=== PATIENT | female | born 1985 | race Caucasian/White ===

== ENCOUNTER 2016-12-13 18:13 | Emergency (ER) | payer OTHER ==
[2016-12-13 18:22] VITALS: TEMP 36.8
[2016-12-13 18:39] VITALS: O2SAT 100
[2016-12-13] MEDS ORDERED: BCPILLS PO (18:47)
[2016-12-13] MEDS ORDERED: BIOF500C2 PO (18:47)
[2016-12-13] MEDS ORDERED: FERR1TAB13 PO (18:47)
[2016-12-13] MEDS ORDERED: CHOL1000 PO (18:47)
[2016-12-13] MEDS ORDERED: SODIUM CHLORIDE 0.9% 1000ML 1,000 ML IV STA (19:18)
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
[2016-12-13] MEDS ORDERED: OPTIRAY 320 IV PRN (19:30)
[2016-12-13 19:39] LABS: BASO % 0.1 %; BASO ABS # 0.01 K/uL (0-0.2); COMPLETE YES; EOS % 0.8 %; IG% 0.3 %; LYMPH % 20.7 %; LYMPH ABS # 1.61 K/uL (1.2-3.4); MEAN CELL VOLUME 94.3 fL (80-100); MEAN CORPUSCULAR HEMOGLOBIN 32.8 pg (25-34); MEAN CORPUSCULAR HGB CONC 34.7 g/dl (32-36); MEAN PLATELET VOLUME 9.2 fL (7.4-10.4); MONO % 6.8 %; NEUT % 71.3 %; PLATELET COUNT 319 K/uL (130-400); RED BLOOD COUNT 4.03 M/uL (4.2-5.4); WHITE BLOOD COUNT 7.76 K/uL (4.8-10.8)
[2016-12-13 19:59] LABS: ALT/SGPT 30 U/L (12-78); AST/SGOT 31 U/L (15-37); BLOOD UREA NITROGEN 16 mg/dl (7-18); BUN/CREATININE RATIO 17.3 (10-20); CARBON DIOXIDE 25 mmol/L (21-32); CHLORIDE 105 mmol/L (98-107); CREATININE 0.94 mg/dl (0.60-1.20); GLUCOSE 82 mg/dl (70-99); POTASSIUM 3.9 mmol/L (3.5-5.1); SODIUM 138 mmol/L (136-145)
[2016-12-13 20:02] LABS: ALKALINE PHOSPHATASE 41 U/L (45-117)
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
[2016-12-13 22:33] VITALS: BP 134/76; PULSE 88; O2SAT 98
== END 2016-12-13 22:21 | disposition home or self-care (01) ==
LOC: EDBD 18:13 → C.EDC 18:15
DX: T14.8 Other injury of unspecified body region (principal); V89.2XXA Person injured in unspecified motor-vehicle accident, traffic, initial encounter